=== PATIENT | female | born 1945 | race Caucasian/White ===

== ENCOUNTER → 2016-06-19 | Outpatient (CLI) | payer MEDICARE ==
[~2016-06-19] MED LIST: AMBIEN DPS5 MG PO; ASA CHILDREN'S81 MG PO; COREG DPS3.125 MG PO; KLOR-CON M2020 ME1 PO; MAPAP PM (TYLEN1 TAB PO; NITROSTAT0.4 MG SL; NORCO 5-325 TA1 EACH PO; PLAVIX75 MG PO; TYLENOL DPS325 MG PO
== END | disposition home or self-care (01) ==
LOC: RESC 03-25 17:08
DX: J44.9 Chronic obstructive pulmonary disease, unspecified (principal); R06.09 Other forms of dyspnea; J98.8 Other specified respiratory disorders; R94.2 Abnormal results of pulmonary function studies; J98.4 Other disorders of lung

== ENCOUNTER → 2016-07-14 | Outpatient (CLI) | payer MEDICARE | END | disposition home or self-care (01) | LOC: RESC 08:37 | DX: J44.9 Chronic obstructive pulmonary disease, unspecified (principal) ==

== ENCOUNTER → 2016-07-25 | Outpatient (CLI) | payer MEDICARE | END | disposition home or self-care (01) | LOC: RAD.S 08:41 | DX: Z12.31 Encounter for screening mammogram for malignant neoplasm of breast (principal) ==